=== PATIENT | male | born 1955 | race Caucasian/White ===

== ENCOUNTER 2023-07-13 14:46 | Emergency (ER) | payer BC, SELFPAY ==
[2023-07-13 14:51] VITALS: BP 119/91
--- NOTE | 2023-07-13 15:26 | ED.GENMED ---
History of Present Illness
General
Chief Complaint: Cardiac Symptoms
Source: patient and records
Exam Limitations: none
Time Seen by Provider: 07/13/23 15:13
Nursing documentation reviewed up to this point in time: agreed with
Travel History
Have you had any contact with someone who has COVID-19?: No
Do you have any symptoms of coronavirus? Fever > 100 degrees, chills, cough, shortness of breath, sore throat, loss of taste or smell, muscle aches, or headache?: No
History of Present Illness
History of Present Illness:
68-year-old male with past medical history of atrial fibrillation who presents to the emergency room for evaluation of palpitations. Patient reports that he was in his normal state of health and then this morning while he was drinking coffee he
noticed that he was having palpitations. He checked his heart monitor at home and it told him that he was in atrial fibrillation. 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 Davis). He waited a bit and his symptoms were not improving and so he came to the emergency room. He says as soon as he walked through the door here in the emergency room his symptoms resolved and he now feels fine and wishes
to leave. He says he did not have any chest pain or shortness of breath did not pass out or have significant dizziness. He has not been taking Eliquis since ablation but he was given a sample pack and told to take a dose should he have recurrent
symptoms of A-fib.
Past History
Past History
ED Past Medical History: Arrthythmia, Hypercholesterolemia and Other (Atrial fibrillation, hyperlipidemia, arthritis)
ED Past Surgical History: Cardiac and Other
Social History
Tobacco: Former smoker
Personal:
Employment: Employed
Review of Systems
Review of Systems
All Other Systems: ROS reviewed and negative except as documented in HPI and ROS
Constitutional: Denies fever
Respiratory: Denies cough or trouble breathing
Cardiac: Reports palpitations; Denies chest pain, diaphoresis or syncope
ABD/GI: Denies abdominal pain, nausea or vomiting
Musculoskeletal: Denies edema
Neurological: Denies dizzy or headache
Phy Exam
Physical Exam
Physical Exam:
General: Awake, alert, oriented x3; no acute distress
Head: Normocephalic, atraumatic
Eyes: Conjunctiva normal
Throat: Airway intact, handling secretions
Neck: Trachea midline
Lungs: Clear to auscultation bilaterally, no wheezing, rales, rhonchi
Heart: Regular rate and rhythm, no murmurs, gallops, or rubs
Neuro: Cranial nerves grossly intact, speech fluid, ambulatory
Extremities: Warm and well-perfused
Scores
Heart Failure Risk
Heart Failure Risk Score: Not Applicable
Heart Score for Chest Pain Patients
STEMI patient?: Not applicable
Withdrawal Assessment of Alcohol
Withdrawal Assessment Completed?: Not applicable
Course
Orders/Labs/Results
Orders:
Orders
07/13/23 14:54
Electrocardiogram (*1) Urgent
Reason for Study: Atrial Fibrillation
07/13/23 14:55
EKG- Treatment ONCE
Vital Signs
Initial and Last Documented VS:
Initial Vital Signs
Temp Pulse Resp BP Pulse Ox
36.8 C 82 20 119/91 98
07/13/23 14:51 07/13/23 14:51 07/13/23 14:51 07/13/23 14:51 07/13/23 14:51
Last Documented Vital Signs
Temp Pulse Resp BP Pulse Ox
36.8 C 82 20 119/91 98
07/13/23 14:51 07/13/23 14:51 07/13/23 14:51 07/13/23 14:51 07/13/23 14:51
MDM/Problems Addressed
Differential Diagnosis Includes:
Symptomatic A-fib
MDM/Problems Addressed:
68-year-old male presents after an episode of A-fib�he says he has been asymptomatic since his ablation in December this morning will drink coffee had palpitations and his monitor told him he was tachycardic and in A-fib. He took a dose of
metoprolol and Eliquis that he had been prescribed and waited a bit and symptoms were not improving. Decided to come to the emergency room and by the time arrival here his symptoms resolved. He has normal vitals and is asymptomatic. His EKG shows
a sinus rhythm. He is requesting discharge. No clear indication for emergent lab work at this point suspect this was an episode of paroxysmal atrial fibrillation. Advised to start Eliquis once again. Discussed case with cardiology they will
follow-up with patient in the office. Spoke about return precautions all questions answered.
Chronic conditions affecting care:
Paroxysmal A-fib
*Pulse Oximetry
Patient hypoxic: no
*EKG
Interpreted by ED Provider?: Yes
Comparison EKG: no changes
Heart Rate: 74
Rate: normal
Rhythm: sinus
Ansted: normal axis
Interval: normal interval
QRS Pattern: normal QRS
Ischemia: other (Septal infarct age undetermined similar to prior)
*Critical Care Note
Total Time (30-74mins, 75-104mins- exclusive of procedures): Not Applicable
Data Reviewed
Review of Other/Old Records Reveals: Records
Source: patient and records
Patient Management
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
ED Attending Note
-
Portions of this chart may have been created with voice recognition software.� Occasional wrong word or��sound alike� substitutions may have occurred due to the inherent limitations of voice recognition software.
Discharge Plan
Departure
Patient Disposition: Home (Routine Discharge)
Date of Disposition: 07/13/23
Time of Disposition: 15:21
Patient with high blood pressure during this ER visit?: No
Discharge Problem:
Atrial Fibrillation
Instructions: Atrial Fibrillation (DC)
Prescriptions:
New
Eliquis 5 mg tablet
5 mg PO BID Qty: 60 0RF
No Action
Eliquis 5 mg tablet
5 mg PO BID
multivitamin Tablet
1 tab PO DAILY
Activity Restrictions/Additional Instructions:
Thank you for visiting the Emergency Department at [facility].
1. Please schedule a follow up appointment as directed. Call first thing tomorrow morning to make an appointment.
2. If indicated, please take your medications as instructed and indicated on discharge paperwork.
3. If any of your symptoms do not improve, or persist, or become more severe within 6-12 hours, please return to the emergency department for further care.
4. Please return to the emergency department if you develop a headache, neck pain/stiffness, fever greater than 100.4F, chest pain, shortness of breath, persistent nausea, vomiting, slurred speech, difficulty walking, numbness/tingling, weakness,
signs of infection or any other symptoms that are worrisome to you.
Please call [phone] if you have any questions.
== END 2023-07-13 15:49 | disposition home or self-care (01) ==
LOC: EMR 14:46
PROVIDERS: EMERGENCY PHYSICIAN Emergency Medicine; FAMILY PHYSICIAN Family Medicine
DX: I48.0 Paroxysmal atrial fibrillation (principal); Z87.891 Personal history of nicotine dependence
CPT/HCPCS: 99283; 93005